=== PATIENT | female | born 1955 | race American Indian/Alaskan Native ===

== ENCOUNTER 2017-03-24 18:24 | Inpatient (IN) | payer OTHER ==
--- NOTE | 2017-03-24 18:35 | Emergency Department Report ---
Chief Complaint: Abdominal Pain Stated Complaint: SEVERE VAG BLEEDING /PREV REVERSAL SURGERY /ABD PX Time Seen by Provider: 03/24/17 18:33 - HPI History of Present Illness: PT c/o R abd pain and vaginal bleeding. pt states she had her colostomy reversed 1 month ago. - ROS Review of Systems: - fevers - chills - Exam Physical Exam: pt looks well, non toxic appears in pain MSE screening note: Focused history and physical exam performed. Due to findings the following was ordered: labs ED Disposition for MSE Condition: Stable
[2017-03-24] MEDS ORDERED: NACL 0.9% 1000 ML 1,000 ML IV ONE (18:55)
[2017-03-24] MEDS ORDERED: DILAUDID IV ONE ×2 (18:55→23:49)
[2017-03-24] MEDS ORDERED: ZOFRAN IV ONE (18:55)
--- NOTE | 2017-03-24 18:55 | Emergency Department Report ---
HPI - General Chief Complaint: Abdominal Pain Time Seen by Provider: 03/24/17 18:33 - HPI HPI: PT c/o R abd pain and vaginal bleeding. pt states she had her colostomy reversed 1 month ago. Patient states she recently saw her surgeon and has somewhat the javon taken out, but for the past 3 days been having diarrhea, nausea, and inability to eat. Patient started having vaginal bleeding today just decided to come to the ED. Patient's denies any fever or chills, night sweats. ED Past Medical Hx - Past Medical History Previous Medical History?: Yes Hx Hypertension: Yes Hx Congestive Heart Failure: No Hx Diabetes: No Hx GERD: Yes Hx Arthritis: Yes Hx Asthma: No Hx COPD: No Hx HIV: No Additional medical history: diverticulitis - Surgical History Past Surgical History?: Yes Additional Surgical History: colon resection with colostomy closure - Social History Smoking Status: Former Smoker Substance Use Type: Alcohol, Prescribed - Medications Home Medications: Home Medications Medication Instructions Recorded Confirmed Last Taken Type Ergocalciferol [Vitamin D2] 1 cap PO QWEEK 02/10/17 03/24/17 02/15/17 History amLODIPine [Norvasc] 5 mg PO DAILY 02/10/17 03/24/17 02/19/17 08:00 History Metoprolol [Lopressor TAB] 50 mg PO BID #60 tablet 02/25/17 03/24/17 Unknown Rx ED Review of Systems ROS: Stated complaint: SEVERE VAG BLEEDING /PREV REVERSAL SURGERY /ABD PX Other details as noted in HPI Comment: All other systems reviewed and negative Endocrine: no symptoms reported Gastrointestinal: abdominal pain, nausea, vomiting, diarrhea Physical Exam - Physical Exam Vital Signs: Vital Signs 03/24/17 18:32 Temperature 98.8 F Pulse Rate 88 Respiratory 20 Rate Blood Pressure 154/100 O2 Sat by Pulse 99 Oximetry Physical Exam: Gen. alert and oriented 3 in no distress Head atraumatic normocephalic Eyes PERR LA EOMI Chest regular rate and rhythm normal S1-S2 lungs clear bilaterally Abdomen soft nondistended, lower area of abdominal wall surgical site with mild dehiscence appears superficial, dehisced region is about 2 cm. Abdominal is diffusely tender. No guarding Back no point tenderness paravertebral tenderness Neuro no focal deficit. Psych normal mood. ED Course Vital Signs 03/24/17 18:32 Temperature 98.8 F Pulse Rate 88 Respiratory 20 Rate Blood Pressure 154/100 O2 Sat by Pulse 99 Oximetry ED Medical Decision Making - Lab Data Result diagrams: 03/24/17 18:59 03/24/17 18:59 Critical care attestation.: If time is entered above; I have spent that time in minutes in the direct care of this critically ill patient, excluding procedure time. ED Disposition Clinical Impression: Intra-abdominal abscess Disposition: OP ADMIT IP TO THIS HOSP Is pt being admited?: Yes Does the pt Need Aspirin: No Condition: Stable Instructions: Abdominal Pain (ED) Referrals: PRIMARY CARE, [Primary Care Provider] - 3-5 Days
--- NOTE | 2017-03-24 19:21 | Admit Criteria Form ---
Admission Criteria Documentation: ABDOMINAL PAIN Clinical Indications for Admission to Inpatient Care (Place 'X' for any and all applicable criteria): Admission is indicated for ANY ONE of the following(1)(2)(3)(4)(5): [ X]I. Inpatient admission required rather than observation care (Also use Abdominal Pain: Observation Care, as appropriate) because of ANY ONE of the following: [ ]a) Severe pain requiring acute inpatient management [ X]b) Identification of etiology/finding that requires inpatient care (eg, aortic dissection, free air) [ ]c) Absent bowel sounds with complete ileus(6) [ ]d) Suspected toxic megacolon [ ]e) Severe electrolyte abnormalities requiring inpatient care [ ]f) High fever or infection requiring inpatient admission as indicated by ANY ONE of following(7)(8): [ ] i) Appropriate outpatient or observational care antimicrobial treatment unavailable, not effective, or not feasible [ ] ii) Documented bacteremia [ ] iii) Temperature > 104.9 degrees F (oral) [ ] iv) T >103.1 F (oral) or < 96.8 F(rectal) that does not respond to all emergency treatment measures [ ]g) Signs of intestinal obstruction [B] [ ]h) Hemodynamic instability [ ]i) IV fluid to replace significant ongoing losses (greater than 3 L/m2 per day) (12)(13) [ ]j) Percutaneous or open drainage (eg, abscess, biliary tract ) procedures [ ]k) Parenteral nutrition regimen that must be implemented on inpatient basis [X ]l) Other condition,treatment or monitoring requiring inpatient admission. [ ]II. Peritoneal signs present [ ]III. Surgery needed that cannot be performed on an ambulatory basis. [ ]IV. Evaluation requires patient to not eat or drink for extended period ( eg, more than 24 hours). [ ]V. Contraindications and/or Inappropriate clinical situations for Observational Care in patients with abdominal pain, when ANY ONE of the following is required: [ ]a) Thorough evaluation is required to prevent catastrophic events due to delays in diagnosing (e.g.Mesenteric ischemia) 1,3 [ ]b) Patient with severe pathology or with chronic symptoms unlikely to improve in the ED stay (3) [ ]. General contraindications and/or Inappropriate clinical situations for Observational Care in patients with abdominal pain, when ANY ONE of the following is required: [ ]a) Prediction of prolongation of LOS based on ANY ONE of the following may be considered as a contraindication for observational care 2, 3, 4, 5, 6, 7, 8, 9, 10, 11 [ ]i) Age > 65 yrs. [ ]ii) Patient arriving by ambulance [ ]iii) Patient with high acuity [ ]iv) Patient requiring vital sign monitoring [ ]v) Patient on IV medication [ ]b) Systolic blood pressures 180mmHg 3,12 [ ]c) Patient with altered mental status including delirium and other alteration of consciousness, (3) [ ]d) Patient whose discharge disposition will be to a usp home or rehabilitation home should not be managed in Emergency Department Observation Unit. CMS rule requires 3 days hospital stay before such placement.3,13 [ ]e) Patient with failure to thrive due to broad array of etiologies 3,16,17 [ ]f) Inability to ambulate 3,14 Extended stay beyond goal length of stay may be needed for(2)(3): [ ]a) Persistent abdominal pain with suspected intra-abdominal process [ ]b) Diagnosed condition requiring continued stay (e.g., pancreatitis, complicated diverticulitis) [ ]c) Surgery (e.g., colectomy) The original [facility] content created by [employer] has been revised. The portions of the content which have been revised are identified through the use of italic text or in bold, and [facility] has neither reviewed nor approved the modified material.All other unmodified content is copyright [facility]. Please see references footnoted in the original [facility] edition 2016 Admission Criteria Met: Yes
[2017-03-24 19:30] LABS: Basophils % (Auto) 0.3 % (0.0-1.8); Eosinophils % (Auto) 1.5 % (0.0-4.3); Hematocrit 31.9 % (30.3-42.9); Hemoglobin 9.8 gm/dl (10.1-14.3); Mean Corpuscular HGB Conc 31 % (30-34); Mean Corpuscular Hemoglobin 24 pg (28-32); Mean Corpuscular Volume 79 fl (79-97); Platelet Count 524 K/mm3 (140-440); Red Blood Count 4.02 M/mm3 (3.65-5.03); Red Cell Distribution Width 15.3 % (13.2-15.2); White Blood Count 10.7 K/mm3 (4.5-11.0)
[2017-03-24 19:32] LABS: INR 1.07 (0.87-1.13)
[2017-03-24 19:33] LABS: Partial Thromboplastin Time 41.7 Sec. (24.2-36.6)
[2017-03-24 19:42] LABS: Albumin 3.8 g/dL (3.9-5); Albumin/Globulin Ratio 0.8 %; Alkaline Phosphatase 85 units/L (35-129); Anion Gap 21 mmol/L; BUN/Creatinine Ratio 11.66; Blood Urea Nitrogen 7 mg/dL (7-17); Calcium 9.6 mg/dL (8.4-10.2); Carbon Dioxide 25 mmol/L (22-30); Chloride 98.9 mmol/L (98-107); Glucose 103 mg/dL (65-100); Lipase 10 units/L (13-60); Potassium 3.5 mmol/L (3.6-5.0); Sodium 141 mmol/L (137-145); Total Protein 8.8 g/dL (6.3-8.2)
[2017-03-24 20:23] LABS: Alanine Aminotransferase < 5 units/L (7-56)
[2017-03-24 21:39] LABS: Bilirubin,Urine NEG (Negative); Blood,Urine MOD (Negative); Ketones,Urine NEG (Negative); Leukocyte Esterase,Urine LG (Negative); Mucus,Urine FEW /HPF; Nitrite,Urine NEG (Negative); Urobilinogen,Urine < 2.0 mg/dL (<2.0); WBC,Urine > 182.0 /HPF (0.0-6.0)
--- NOTE | 2017-03-24 23:25 | Cat Scan Report ---
FINAL REPORT EXAM: CT ABDOMEN PELVIS W CON HISTORY: pain TECHNIQUE: CT of the abdomen and pelvis with intravenous contrast PRIORS: Comparison is dated April 13, 2016 FINDINGS: There is no acute abnormality identified in the lung bases. No focal abnormality identified within the liver spleen or pancreas Kidneys demonstrate symmetric contrast enhancement The adrenal glands are unremarkable pancreas demonstrates no acute change no peripancreatic inflammatory change seen. There is some heterogeneity within lumen of the gallbladder may reflect stones or sludge. The abdominal aorta is normal in caliber Within the lower pelvis there is marked inflammatory appearing change with strandy areas of increased density. Just adjacent to the sigmoid colon there is a collection measuring approximately 3.7 x 2.2 centimeters with a small air collection low-density focus likely reflecting phlegmonous change and abscess. Anterior lower pelvis there are small bowel loops bowel wall thickening. Adjacent to this area there is approximately 2.7 x 2.6 centimeter focus containing some low-density and air also likely reflecting abscess. There is thickened appearance of the dome of the urinary bladder this was present previously. No air collection seen within the urinary bladder there is luminal narrowing of the distal ileum mucosal thickening likely reflecting inflammatory change. There is some evidence for prior bowel resection in this area please correlate with surgical history. Distal descending and proximal to mid sigmoid colon demonstrate wall thickening. IMPRESSION: Inflammatory appearing changes are present within the mid to lower pelvis. Distal descending through mid sigmoid mucosal thickening Mucosal thickening of small-bowel loops in the lower pelvis and at the distal ileum Phlegmonous changes and abscess collection seen adjacent to the mid sigmoid colon Collection seen within the lower pelvis adjacent to small bowel loops and anterior to the urinary bladder consistent with abscess collection and phlegmonous change
[2017-03-24] MEDS ORDERED: ZOSYN/NS 4.5GM/100ML 4.5 GM/100 ML VIAL IV ONE (23:55)
--- NOTE | 2017-03-25 00:18 | History and Physical Report ---
History of Present Illness Date of examination: 03/25/17 Date of admission: 03/25/17 Chief complaint: Abdominal pain History of present illness: Patient is 61-year-old with history of diverticulitis, rectovaginal fistula. She had had sigmoid colon resection in 2016 with colostomy. lasty month on 02/19, she had closure of colostomy by Dr. Marroquin. She she presents with abdominal pain, worse over the past 2 days. Abdominal pain is sharp, generalized pain. She denies nausea, no vomiting, no fever. Also patient complains of diarrhea since colostomy was closed one month ago- multiple episodes of diarrhea daily. In Emergency department, CT abdomen showed intra- abdominal abscesses. She was given Zosyn IV and is being admitted for further management. Past History Past Medical History: hypertension, hyperlipidemia Past Surgical History: bowel surgery, Other (rectovaginal fistula, diverticulitis s/p sigmoid colon resection,colostomy and Yadira's pouch. Closure ofcolostomy on 02/19/2017) Social history: lives with family, full code. denies: smoking, alcohol abuse Family history: hypertension Medications and Allergies Allergies Allergy/AdvReac Type Severity Reaction Status Date / Time naproxen [From Naprosyn] AdvReac Swelling Verified 04/02/16 14:42 naproxen sodium [From Aleve] AdvReac Swelling Verified 04/02/16 14:42 ALEVE AdvReac Severe Swelling Uncoded 04/02/16 14:42 Home Medications Medication Instructions Recorded Confirmed Last Taken Type Ergocalciferol [Vitamin D2] 1 cap PO QWEEK 02/10/17 03/24/17 02/15/17 History amLODIPine [Norvasc] 5 mg PO DAILY 02/10/17 03/24/17 02/19/17 08:00 History Metoprolol [Lopressor TAB] 50 mg PO BID #60 tablet 02/25/17 03/24/17 Unknown Rx Active Meds: Active Medications Piperacillin Sod/Tazobactam Sod (Zosyn/Ns 4.5gm/100ml) 4.5 gm in 100 mls @ 200 mls/hr IV ONCE ONE Stop: 03/25/17 00:24 Exam - Physical Exam Narrative exam: Gen appearance: not in acute distress HEENT: normocephalic atraumatic Neck:supple, no JVD Lungs: clear to auscultation bilaterally, no crackles or wheezes Heart :S1 and S2 regular, no murmurs, rubs or gallop Abdomen: Soft, mild tender, multiple scars, normal bowel sounds Extremities :no edema no clubbing or cyanosis Neuro: Awake alert oriented 3, no focal neurological signs - Constitutional Vitals: Temp Pulse Resp BP Pulse Ox 98.8 F 71 10 L 131/77 95 03/24/17 18:32 03/24/17 20:31 03/24/17 20:31 03/24/17 20:31 03/24/17 20:31 Results - Labs CBC & Chem 7: 03/24/17 18:59 03/24/17 18:59 Labs: Abnormal lab results 03/24/17 03/24/17 03/24/17 Range/Units 18:59 18:59 18:59 Hgb 9.8 L (10.1-14.3) gm/dl MCH 24 L (28-32) pg RDW 15.3 H (13.2-15.2) % Plt Count 524 H (140-440) K/mm3 [place] % (Auto) 9.1 H (0.0-7.3) % [place] # 1.0 H (0.0-0.8) K/mm3 APTT 41.7 H (24.2-36.6) Sec. Potassium 3.5 L (3.6-5.0) mmol/L Creatinine 0.6 L (0.7-1.2) mg/dL Glucose 103 H (65-100) mg/dL ALT < 5 L (7-56) units/L Total Protein 8.8 H (6.3-8.2) g/dL Albumin 3.8 L (3.9-5) g/dL Lipase 10 L (13-60) units/L Urine WBC (Auto) (0.0-6.0) /HPF 03/24/17 Range/Units 21:07 Hgb (10.1-14.3) gm/dl MCH (28-32) pg RDW (13.2-15.2) % Plt Count (140-440) K/mm3 [place] % (Auto) (0.0-7.3) % [place] # (0.0-0.8) K/mm3 APTT (24.2-36.6) Sec. Potassium (3.6-5.0) mmol/L Creatinine (0.7-1.2) mg/dL Glucose (65-100) mg/dL ALT (7-56) units/L Total Protein (6.3-8.2) g/dL Albumin (3.9-5) g/dL Lipase (13-60) units/L Urine WBC (Auto) > 182.0 H (0.0-6.0) /HPF Assessment and Plan Intra-abdominal abscesses. Admit to medical surgical floor. Zosyn IV started. Obtain blood cultures. Keep NPO. Start iv fluids. Morphine iv prn for pain management. Dr. marroquin, surgeon consulted. The ED Physician discussed case with him. History of colovaginal fistula status post sigmoid colon resection and colostomy in 2016 and colostomy closure 02/19/2017 Unit tract infection. Patient started on Zosyn. Urine cultures ordered. Hypertension. BP stable. Hypokalemia. Replace with Potassium containing iv fluid. Hyperlipidemia DVT prophylaxis with SCDs only. No anticoagulation because of possible surgery Full CODE STATUS
[2017-03-25] MEDS ORDERED: TYLENOL PO PRN (01:05)
[2017-03-25] MEDS ORDERED: D5W/0.45% NACL/KCL 10 MEQ 10 MEQ/1,000 ML BAG IV SCH (02:00)
[2017-03-25] MEDS: MORPHINE IV PRN ×3 (05:55→19:31)
[2017-03-25] MEDS: ZOSYN/NS 4.5GM/100ML 4.5 GM/100 ML VIAL IV SCH ×4 (05:56→23:39)
[2017-03-25 06:40] LABS: Hematocrit 29.1 % (30.3-42.9); Hemoglobin 9.1 gm/dl (10.1-14.3); Mean Corpuscular HGB Conc 31 % (30-34); Mean Corpuscular Hemoglobin 25 pg (28-32); Mean Corpuscular Volume 79 fl (79-97); Platelet Count 453 K/mm3 (140-440); Red Blood Count 3.68 M/mm3 (3.65-5.03); Red Cell Distribution Width 15.4 % (13.2-15.2)
[2017-03-25 06:45] LABS: Anion Gap 16 mmol/L; BUN/Creatinine Ratio 8.33; Blood Urea Nitrogen 5 mg/dL (7-17); Calcium 9.2 mg/dL (8.4-10.2); Carbon Dioxide 27 mmol/L (22-30); Chloride 101.7 mmol/L (98-107); Glucose 114 mg/dL (65-100); Potassium 3.1 mmol/L (3.6-5.0); Sodium 142 mmol/L (137-145)
[2017-03-25] MEDS ORDERED: K-DUR PO NR (08:30)
[2017-03-25] MEDS: ZOFRAN IV PRN ×2 (08:55→19:31)
--- NOTE | 2017-03-25 09:58 | Event Note ---
Date: 03/25/17 Patient seen and evaluated medical records reviewed Patient was admitted this morning with intra-abdominal abscess adjacent to the mid sigmoid colon, collection seen within the lower pelvis adjacent to small bowel loops anterior to the urinary bladder consistent with abscess collection and phlegmonous change Being managed with IV antibiotics, surgery has evaluated the patient, planning surgery Advised to consult ID for recommendations. Agree with the current management Plan of care discussed with the patient and the family member at the bedside
[2017-03-25] MEDS ORDERED: FLAGYL 500 MG/100 ML 500 MG/100 ML BAG IV SCH (10:00)
[2017-03-25] MEDS: KCL 10MEQ/100ML 10 MEQ/100 ML BAG IV SCH ×3 (10:19→12:57)
[2017-03-25] MEDS: LOPRESSOR PO SCH ×3 (10:22→21:42)
--- NOTE | 2017-03-25 13:40 | Event Note ---
Date: 03/25/17 ID consult requested. Chart has been reviewed. Full consult note to follow. Patient is a 61-year-old woman with a history of diverticulitis and rectovaginal fistula who underwent a sigmoid colectomy with colostomy in 2016. This was followed by a colostomy take-down last month. She presents now with abdominal pain and is found to have an intra-abdominal abscesses (3.7 X 2.2 cm and 2.7 X 2.6 cm) on CT abdomen/ pelvis. Agree with empiric Zosyn pending definitive surgical plan for drainage/culture and source control. Broaden empirically to Meropenem and Vancomycin if patient becomes clinically unstable.
[2017-03-25] MEDS: D5W/0.45% NACL/KCL 20 MEQ 20 MEQ/1,000 ML BAG IV SCH ×2 (13:53→23:47)
--- NOTE | 2017-03-26 01:41 | Consultation ---
HISTORY OF PRESENT ILLNESS: The patient is a well-known case to me. She is a 61-year-old black female. She is a known case of diverticular disease with abscess formation that required resection and Yadira pouch. This was done about 6 months ago. She came about 4 or 5 weeks ago to close the colostomy. This was performed. Postop she did slowly well and she was discharged home. I saw her in my office in about a week ago and she was doing fine except for some incisional pain. She had retention sutures that I removed almost all of them except for 2. The patient had no nausea and no vomiting. She had no fever. Her white count was 9000. She was evaluated by our ER physician. A CAT scan showed evidence of an area of air fluid level x 3 about 2 cm each. There is no evidence of any free air in the abdominal cavity. She told me that the pain has been really intense in the last 2 days. Her potassium upon admission was on the low side at 3.5 and today is 3.1. White count was 10.7, hematocrit 31.9, platelets were 524. Bilirubin is normal and albumin is 3.8. ALLERGIES: THE PATIENT IS ALLERGIC TO NAPROXEN, ALEVE. PHYSICAL EXAMINATION: GENERAL: At this point showed a well-preserved black female. She looked in moderate pain to the abdomen. HEAD AND NECK: Negative. CHEST: Essentially clear. HEART: Sounds normal to me. BREASTS: Symmetric. ABDOMEN: Showed moderate tenderness in the mid epigastric area. The patient had 2 retention sutures that I need to remove them. We will take them out, maybe tomorrow. EXTREMITIES: Showed no significant edema. IMPRESSION: Three areas of air fluid levels at the level of the abdomen, one superior, one midline and one inferior, status post colon resection with closure of colostomy ____ exogenous obesity. PLAN: I had a lengthy talk with the patient as to the need to keep her n.p.o. with IV fluids and IV antibiotics, hydrate her well and I checked the x-ray with Dr. Copeland who suggested to do a Gastrografin enema on her maybe within the coming 1 or 2 days. We will pursue that further of course and we will go from there. I am going to call Infectious Disease to see her. We are going to hydrate her IV to 100 per hour. Her potassium was low, this would be at least supplemented in the IV. JOB# [id number] CASSANDRA/PRABHAKAR
[2017-03-26] MEDS: ZOFRAN IV PRN (01:43)
[2017-03-26] MEDS: MORPHINE IV PRN ×4 (01:43→20:20)
[2017-03-26 05:39] LABS: Anion Gap 17 mmol/L; Blood Urea Nitrogen 3 mg/dL (7-17); Calcium 8.6 mg/dL (8.4-10.2); Carbon Dioxide 22 mmol/L (22-30); Chloride 102.3 mmol/L (98-107); Glucose 110 mg/dL (65-100); Potassium 3.5 mmol/L (3.6-5.0); Sodium 138 mmol/L (137-145)
[2017-03-26] MEDS: ZOSYN/NS 4.5GM/100ML 4.5 GM/100 ML VIAL IV SCH ×3 (05:53→17:09)
[2017-03-26 06:03] LABS: Hematocrit 28.9 % (30.3-42.9); Hemoglobin 8.9 gm/dl (10.1-14.3); Mean Corpuscular HGB Conc 31 % (30-34); Mean Corpuscular Volume 82 fl (79-97); Platelet Count 425 K/mm3 (140-440); Red Blood Count 3.53 M/mm3 (3.65-5.03); Red Cell Distribution Width 15.3 % (13.2-15.2); White Blood Count 8.3 K/mm3 (4.5-11.0)
[2017-03-26 06:05] LABS: Mean Corpuscular Hemoglobin 25 pg (28-32)
[2017-03-26 06:09] LABS: Basophils % (Auto) 0.5 % (0.0-1.8); Eosinophils % (Auto) 3.4 % (0.0-4.3)
[2017-03-26 06:10] LABS: Diff Status Complete
--- NOTE | 2017-03-26 08:06 | Progress Note ---
Assessment and Plan Assessment and plan: --Hypokalemia; Replenish per protocol by IV KCl, however patient could not tolerate, complaining of burning, and refused Hold IV KCl, closely monitor potassium --Intra-abdominal abscesses: NPO, IV fluids , IV antibiotics , surgery following --History of colovaginal fistula status post sigmoid colon resection and colostomy in 2016 and colostomy closure 02/19/2017 --Urinary tract infection. Continue empiric antibiotics follow cultures --Hypertension; well controlled --DVT prophylaxis with SCDs pharmacologic anticoagulation in view of pending surgical procedure --Full CODE STATUS Consults noted in the appreciated Assessment and plan reviewed with the patient and family member and also her nurse History Interval history: Patient seen and evaluated medical records reviewed No new events reported by the nursing staff Patient has severe diarrhea, no melena or rectal bleeding Hospitalist Physical - Constitutional Vitals: Temp Pulse Resp BP Pulse Ox 98.9 F 73 18 135/78 99 03/25/17 22:25 03/25/17 22:25 03/26/17 06:23 03/25/17 22:25 03/25/17 22:25 General appearance: Present: no acute distress, well-nourished - EENT Eyes: Present: PERRL, EOM intact - Neck Neck: Present: supple, normal ROM - Respiratory Respiratory effort: normal Respiratory: bilateral: diminished, rhonchi, negative: rales, wheezing - Cardiovascular Rhythm: regular Heart Sounds: Present: S1 & S2 - Extremities Extremities: no ischemia, No edema - Abdominal General gastrointestinal: soft, tender, absent bowel sounds, other (surgical scar intact) - Integumentary Integumentary: Present: clear, warm - Psychiatric Psychiatric: appropriate mood/affect, cooperative - Neurologic Neurologic: CNII-XII intact, moves all extremities Results - Labs CBC & Chem 7: 03/26/17 04:27 03/26/17 04:27 Labs: Laboratory Last Values WBC 8.3 K/mm3 (4.5-11.0) 03/26/17 04:27 RBC 3.53 M/mm3 (3.65-5.03) L 03/26/17 04:27 Hgb 8.9 gm/dl (10.1-14.3) L 03/26/17 04:27 Hct 28.9 % (30.3-42.9) L 03/26/17 04:27 MCV 82 fl (79-97) 03/26/17 04:27 MCH 25 pg (28-32) L 03/26/17 04:27 MCHC 31 % (30-34) 03/26/17 04:27 RDW 15.3 % (13.2-15.2) H 03/26/17 04:27 Plt Count 425 K/mm3 (140-440) 03/26/17 04:27 Lymph % (Auto) 20.1 % (13.4-35.0) 03/26/17 04:27 [place] % (Auto) 8.8 % (0.0-7.3) H 03/26/17 04:27 Eos % (Auto) 3.4 % (0.0-4.3) 03/26/17 04:27 Baso % (Auto) 0.5 % (0.0-1.8) 03/26/17 04:27 Lymph # 1.7 K/mm3 (1.2-5.4) 03/26/17 04:27 [place] # 0.7 K/mm3 (0.0-0.8) 03/26/17 04:27 Eos # 0.3 K/mm3 (0.0-0.4) 03/26/17 04:27 Baso # 0.0 K/mm3 (0.0-0.1) 03/26/17 04:27 Add Manual Diff Complete 03/26/17 04:27 Seg Neutrophils % 67.2 % (40.0-70.0) 03/26/17 04:27 Seg Neutrophils # 5.9 K/mm3 (1.8-7.7) 03/26/17 04:27 PT 14.5 Sec. (12.2-14.9) 03/24/17 18:59 INR 1.07 (0.87-1.13) 03/24/17 18:59 APTT 41.7 Sec. (24.2-36.6) H 03/24/17 18:59 Sodium 138 mmol/L (137-145) 03/26/17 04:27 Potassium 3.5 mmol/L (3.6-5.0) L 03/26/17 04:27 Chloride 102.3 mmol/L (98-107) 03/26/17 04:27 Carbon Dioxide 22 mmol/L (22-30) 03/26/17 04:27 Anion Gap 17 mmol/L 03/26/17 04:27 BUN 3 mg/dL (7-17) L 03/26/17 04:27 Creatinine 0.6 mg/dL (0.7-1.2) L 03/26/17 04:27 Estimated GFR > 60 ml/min 03/26/17 04:27 BUN/Creatinine Ratio 5.00 % 03/26/17 04:27 Glucose 110 mg/dL (65-100) H 03/26/17 04:27 Calcium 8.6 mg/dL (8.4-10.2) 03/26/17 04:27 Total Bilirubin 0.20 mg/dL (0.1-1.2) 03/24/17 18:59 AST 9 units/L (5-40) 03/24/17 18:59 ALT < 5 units/L (7-56) L 03/24/17 18:59 Alkaline Phosphatase 85 units/L (35-129) 03/24/17 18:59 Total Protein 8.8 g/dL (6.3-8.2) H 03/24/17 18:59 Albumin 3.8 g/dL (3.9-5) L 03/24/17 18:59 Albumin/Globulin Ratio 0.8 % 03/24/17 18:59 Lipase 10 units/L (13-60) L 03/24/17 18:59 Urine Color Yellow (Yellow) 03/24/17 21:07 Urine Turbidity Cloudy (Clear) 03/24/17 21:07 Urine pH 7.0 (5.0-7.0) 03/24/17 21:07 Ur Specific [place] 1.010 (1.003-1.030) 03/24/17 21:07 Urine Protein 30 mg/dl mg/dL (Negative) 03/24/17 21:07 Urine Glucose (UA) Neg mg/dL (Negative) 03/24/17 21:07 Urine Ketones Neg mg/dL (Negative) 03/24/17 21:07 Urine Blood Mod (Negative) 03/24/17 21:07 Urine Nitrite Neg (Negative) 03/24/17 21:07 Urine Bilirubin Neg (Negative) 03/24/17 21:07 Urine Urobilinogen < 2.0 mg/dL (<2.0) 03/24/17 21:07 Ur Leukocyte Esterase Lg (Negative) 03/24/17 21:07 Urine WBC (Auto) > 182.0 /HPF (0.0-6.0) H 03/24/17 21:07 Urine RBC (Auto) 19.0 /HPF (0.0-6.0) 03/24/17 21:07 U Epithel Cells (Auto) 1.0 /HPF (0-13.0) 03/24/17 21:07 Urine WBC Clumps 3+ /HPF 03/24/17 21:07 Urine Mucus Few /HPF 03/24/17 21:07 Blood Type O POSITIVE 03/24/17 19:00 Antibody Screen TNR 03/24/17 19:00 QUEENIE Antibody Screen Negative 03/24/17 19:00
--- NOTE | 2017-03-26 08:50 | Consultation ---
History of Present Illness - Reason for Consult Consult date: 03/26/17 Intra-Abdominal Abscesses Requesting physician: DINORAH SERNA - History of Present Illness Ms. Winslow is a 61-year-old woman with a history of diverticulitis complicated by the development of a rectovaginal fistula. She underwent a sigmoid colectomy with colostomy in 2015. She completed a colostomy take-down in February 2017 and now returns with severe abdominal pain. CT imaging of the abdomen revealed two discrete collections measuring 2.6 X 2.7 cm and 2.2 X 3.7 cm. She is started on empiric Zosyn pending further surgical intervention. She also complains of diarrhea since the colostomy take-down. ID consultation is requested for further treatment recommendations. Past History Past Medical History: hypertension, hyperlipidemia, other (diverticulitis s/p sigmoid colectomy; hx rectovaginal fistula) Past Surgical History: bowel surgery, Other (rectovaginal fistula, diverticulitis s/p sigmoid colon resection,colostomy and Yadira's pouch. Closure ofcolostomy on 02/19/2017) Social history: lives with family, full code. denies: smoking, alcohol abuse Family history: hypertension Medications and Allergies Allergies Allergy/AdvReac Type Severity Reaction Status Date / Time naproxen [From Naprosyn] AdvReac Swelling Verified 04/02/16 14:42 naproxen sodium [From Aleve] AdvReac Swelling Verified 04/02/16 14:42 ALEVE AdvReac Severe Swelling Uncoded 04/02/16 14:42 Home Medications Medication Instructions Recorded Confirmed Last Taken Type Ergocalciferol [Vitamin D2] 1 cap PO QWEEK 02/10/17 03/24/17 02/15/17 History amLODIPine [Norvasc] 5 mg PO DAILY 02/10/17 03/24/17 02/19/17 08:00 History Metoprolol [Lopressor TAB] 50 mg PO BID #60 tablet 02/25/17 03/24/17 Unknown Rx Active Meds: Active Medications Acetaminophen (Tylenol) 650 mg PO Q4H PRN PRN Reason: Pain MILD(1-3)/Fever >100.5/HINDS Piperacillin Sod/Tazobactam Sod (Zosyn/Ns 4.5gm/100ml) 4.5 gm in 100 mls @ 200 mls/hr IV Q6HR MURTAZA PRN Reason: Protocol Last Admin: 03/26/17 05:53 Dose: 200 mls/hr Potassium Chloride/Dextrose/Sod Cl (D5w/0.45% Nacl/Kcl 20 Meq) 20 meq in 1,000 mls @ 100 mls/hr IV DIRECT MURTAZA Last Admin: 03/25/17 23:47 Dose: 100 mls/hr Potassium Chloride (Kcl 10meq/100ml) 10 meq in 100 mls @ 100 mls/hr IV Q1H [facility] Stop: 03/26/17 11:59 Metoprolol Tartrate (Lopressor) 50 mg PO BID [facility] Last Admin: 03/25/17 21:42 Dose: Not Given Morphine Sulfate (Morphine) 2 mg IV Q4H PRN PRN Reason: Pain, Moderate (4-6) Last Admin: 03/26/17 05:53 Dose: 2 mg Ondansetron HCl (Zofran) 4 mg IV Q6H PRN PRN Reason: nausea or vomiting Last Admin: 03/26/17 01:43 Dose: 4 mg Review of Systems All systems: negative Constitutional: no fever, no chills Cardiovascular: no chest pain Respiratory: no cough, no shortness of breath Gastrointestinal: abdominal pain, nausea, diarrhea, no jaundice Genitourinary Female: no dysuria Integumentary: no rash, no pruritis Physical Examination - Constitutional Vitals: Vital Signs Temp Pulse Resp BP Pulse Ox 98.9 F 73 18 135/78 99 03/25/17 22:25 03/25/17 22:25 03/26/17 06:23 03/25/17 22:25 03/25/17 22:25 Temperature -Last 24 Hours Temperature 98.9 F Temperature 100.1 F General appearance: Present: no acute distress, well-nourished, other (non- toxic appearance) - EENT Eyes: Absent: scleral icterus - Respiratory Respiratory effort: normal Respiratory: bilateral: CTA, negative: rhonchi - Cardiovascular Rhythm: regular Heart Sounds: Present: S1 & S2 - Extremities Extremities: No edema - Abdominal General gastrointestinal: Present: soft, tender, distended (mildly), hypoactive bowel sounds, other (reinforced horizontal sutures on abdomen with small open area at suprapubic midline, serous output) - Integumentary Integumentary: Present: clear. Absent: jaundice - Psychiatric Psychiatric: appropriate mood/affect - Neurologic Neurologic: no focal deficits Results - Labs CBC & Chem 7: 03/26/17 04:27 03/26/17 04:27 Labs: Abnormal lab results 03/26/17 03/26/17 Range/Units 04:27 04:27 RBC 3.53 L (3.65-5.03) M/mm3 Hgb 8.9 L (10.1-14.3) gm/dl Hct 28.9 L (30.3-42.9) % MCH 25 L (28-32) pg RDW 15.3 H (13.2-15.2) % [place] % (Auto) 8.8 H (0.0-7.3) % Potassium 3.5 L (3.6-5.0) mmol/L BUN 3 L (7-17) mg/dL Creatinine 0.6 L (0.7-1.2) mg/dL Glucose 110 H (65-100) mg/dL Microbiology 03/25/17 Unknown Urine,Clean Catch Urine Culture - Preliminary Gram Negative David 03/25/17 01:16 Peripheral/Venous Blood Culture - Preliminary NO GROWTH AFTER 24 HOURS 03/25/17 01:16 Peripheral/Venous Blood Culture - Preliminary NO GROWTH AFTER 24 HOURS - Imaging and Cardiology CT scan - abdomen: report reviewed Assessment and Plan - Patient Problems (1) Intra-abdominal abscess Current Visit: Yes Status: Acute Plan to address problem: 1. Zosyn and Fluconazole empirically. 2. Await surgical plans for abscess drainage as these collections are too large to confidently manage medically. Also, culture data would benefit treatment choice. (2) Diarrhea Current Visit: Yes Status: Acute Qualifiers: Diarrhea type: D Plan to address problem: 1. Will send stool for culture and Cdiff testing. 2. Empiric Flagyl for now.
[2017-03-26] MEDS: KCL 10MEQ/100ML 10 MEQ/100 ML BAG IV SCH ×2 (09:33→12:10)
[2017-03-26] MEDS: LOPRESSOR PO SCH ×3 (10:23→22:28)
[2017-03-26] MEDS: FLAGYL PO SCH ×5 (10:23→22:28)
[2017-03-26] MEDS: DIFLUCAN 200 ML IV SCH (12:00)
[2017-03-26] MEDS: D5W/0.45% NACL/KCL 20 MEQ 20 MEQ/1,000 ML BAG IV SCH (12:24)
--- NOTE | 2017-03-26 15:21 | Progress Note ---
Subjective Patient Reports: Positive: feels better, still having pain, pain is less, bowel movement, diarrhea Narrative: feels OK still some abd pain ,loose stool abd OK will obtain KUB needs more K. Objective Vital Signs - 12hr 03/26/17 03/26/17 03/26/17 05:53 06:23 08:00 Temperature 98.1 F Pulse Rate 69 Respiratory 18 18 20 Rate Blood Pressure 137/72 O2 Sat by Pulse 97 Oximetry 03/26/17 15:14 Temperature 99.8 F H Pulse Rate 73 Respiratory 20 Rate Blood Pressure 134/77 O2 Sat by Pulse 97 Oximetry - Labs 03/26/17 04:27 03/26/17 04:27 Diabetes panel 03/26/17 Range/Units 04:27 Sodium 138 (137-145) mmol/L Potassium 3.5 L (3.6-5.0) mmol/L Chloride 102.3 (98-107) mmol/L Carbon Dioxide 22 (22-30) mmol/L BUN 3 L (7-17) mg/dL Creatinine 0.6 L (0.7-1.2) mg/dL Glucose 110 H (65-100) mg/dL Calcium 8.6 (8.4-10.2) mg/dL Calcium panel 03/26/17 Range/Units 04:27 Calcium 8.6 (8.4-10.2) mg/dL Pituitary panel 03/26/17 Range/Units 04:27 Sodium 138 (137-145) mmol/L Potassium 3.5 L (3.6-5.0) mmol/L Chloride 102.3 (98-107) mmol/L Carbon Dioxide 22 (22-30) mmol/L BUN 3 L (7-17) mg/dL Creatinine 0.6 L (0.7-1.2) mg/dL Glucose 110 H (65-100) mg/dL Calcium 8.6 (8.4-10.2) mg/dL Adrenal panel 03/26/17 Range/Units 04:27 Sodium 138 (137-145) mmol/L Potassium 3.5 L (3.6-5.0) mmol/L Chloride 102.3 (98-107) mmol/L Carbon Dioxide 22 (22-30) mmol/L BUN 3 L (7-17) mg/dL Creatinine 0.6 L (0.7-1.2) mg/dL Glucose 110 H (65-100) mg/dL Calcium 8.6 (8.4-10.2) mg/dL
[2017-03-27] MEDS: ZOSYN/NS 4.5GM/100ML 4.5 GM/100 ML VIAL IV SCH ×4 (00:51→18:32)
[2017-03-27] MEDS: MORPHINE IV PRN ×4 (00:56→20:21)
[2017-03-27] MEDS: FLAGYL PO SCH (05:52)
[2017-03-27 06:45] LABS: Basophils % (Auto) 0.3 % (0.0-1.8); Eosinophils % (Auto) 3.4 % (0.0-4.3); Hematocrit 28.6 % (30.3-42.9); Hemoglobin 9.1 gm/dl (10.1-14.3); Mean Corpuscular HGB Conc 32 % (30-34); Mean Corpuscular Volume 79 fl (79-97); Platelet Count 431 K/mm3 (140-440); Red Blood Count 3.63 M/mm3 (3.65-5.03); Red Cell Distribution Width 15.4 % (13.2-15.2); White Blood Count 9.3 K/mm3 (4.5-11.0)
[2017-03-27 06:48] LABS: Anion Gap 18 mmol/L; BUN/Creatinine Ratio 1.66; Blood Urea Nitrogen 1 mg/dL (7-17); Calcium 8.7 mg/dL (8.4-10.2); Carbon Dioxide 24 mmol/L (22-30); Chloride 105.6 mmol/L (98-107); Glucose 88 mg/dL (65-100); Potassium 3.1 mmol/L (3.6-5.0); Sodium 144 mmol/L (137-145)
[2017-03-27 07:19] LABS: Mean Corpuscular Hemoglobin 25 pg (28-32)
--- NOTE | 2017-03-27 07:52 | XRay Report ---
Single view abdomen: Findings: No bowel distention. No wall thickening. No radiopaque calculus or abnormal calcification. Impression: Essentially negative abdomen.
[2017-03-27] MEDS: K-DUR PO SCH (10:27)
[2017-03-27] MEDS: DIFLUCAN 200 ML IV SCH (10:27)
[2017-03-27] MEDS: LOPRESSOR PO SCH ×2 (10:27→22:12)
[2017-03-27] MEDS: D5W/0.45% NACL/KCL 20 MEQ 20 MEQ/1,000 ML BAG IV SCH ×2 (10:52→20:30)
--- NOTE | 2017-03-27 11:28 | Progress Note ---
Assessment and Plan - Patient Problems (1) Intra-abdominal abscess Current Visit: Yes Status: Acute Plan to address problem: 1. Continue current antibiotics pending definitive plan for percutaneous vs. surgical drainage. 2. Awaiting findings of repeat CT scan. 3. Size of collections makes medical management alone less reliable. (2) Clostridium difficile diarrhea Current Visit: Yes Status: Acute Plan to address problem: 1. Will change Flagyl to enteral Vancomycin. 2. Duration should be extended to include duration that patient remains on antibiotics for abscesses. 3. Contact isolation. Subjective Date of service: 03/27/17 Principal diagnosis: Intra-Abdominal Abscesses Interval history: Patient remains afebrile, stable. Continued diarrhea though improved since admission. Objective - Constitutional Vitals: Vital Signs Temp Pulse Resp BP Pulse Ox 98.3 F 68 20 142/80 97 03/27/17 07:00 03/27/17 07:00 03/27/17 07:00 03/27/17 07:00 03/27/17 07:00 Temperature -Last 24 Hours Temperature 98.3 F Temperature 99.7 F Temperature 98.5 F Temperature 99.8 F General appearance: Present: no acute distress, other (non-toxic appearance) - EENT ENT: poor dentition - Neck Neck: supple - Respiratory Respiratory effort: normal Respiratory: bilateral: CTA - Cardiovascular Rhythm: regular Heart Sounds: Present: S1 & S2 Extremities: No edema - Gastrointestinal General gastrointestinal: Present: soft, tender, distended (mildly distended), hypoactive bowel sounds, other (some remaining sutures, no drainage seen) Localized gastrointestinal: tender: RLQ (near area of sutures) - Integumentary Integumentary: clear, no jaundice - Psychiatric Psychiatric: appropriate mood/affect - Labs CBC & Chem 7: 03/27/17 05:49 03/27/17 05:49 Labs: Abnormal lab results 03/27/17 03/27/17 Range/Units 05:49 05:49 RBC 3.63 L (3.65-5.03) M/mm3 Hgb 9.1 L (10.1-14.3) gm/dl Hct 28.6 L (30.3-42.9) % MCH 25 L (28-32) pg RDW 15.4 H (13.2-15.2) % [place] % (Auto) 9.6 H (0.0-7.3) % [place] # 0.9 H (0.0-0.8) K/mm3 Potassium 3.1 L (3.6-5.0) mmol/L BUN 1 L (7-17) mg/dL Creatinine 0.6 L (0.7-1.2) mg/dL Magnesium 1.60 L (1.7-2.3) mg/dL Microbiology 03/25/17 Unknown Urine,Clean Catch Urine Culture - Final Escherichia Coli 03/26/17 20:39 Stool Stool Culture - Preliminary 03/26/17 20:39 Stool Stool for WBCs - Final 03/25/17 01:16 Peripheral/Venous Blood Culture - Preliminary NO GROWTH AFTER 48 HOURS 03/25/17 01:16 Peripheral/Venous Blood Culture - Preliminary NO GROWTH AFTER 48 HOURS 03/26/17 20:39 Stool C. difficile DNA Amplification - Final (Positive) - Imaging and cardiology Abdominal x-ray: report reviewed (no bowel distention, negative study)
--- NOTE | 2017-03-27 12:54 | Progress Note ---
Assessment and Plan Assessment and plan: --Hypokalemia; Replenish per protocol by IV KCl, however patient could not tolerate, complaining of burning, and refused Hold IV KCl, closely monitor potassium --Intra-abdominal abscesses: NPO, IV fluids , IV antibiotics , surgery following --History of colovaginal fistula status post sigmoid colon resection and colostomy in 2016 and colostomy closure 02/19/2017 --Urinary tract infection. Continue empiric antibiotics follow cultures --Hypertension; well controlled --DVT prophylaxis with SCDs pharmacologic anticoagulation in view of pending surgical procedure --Full CODE STATUS Consults noted in the appreciated Assessment and plan reviewed with the patient and family member and also her nurse History Interval history: Patient seen and evaluated medical records reviewed She feels slightly better, C. difficile positive, and contact isolation Hospitalist Physical - Constitutional Vitals: Temp Pulse Resp BP Pulse Ox 98.3 F 68 20 142/80 97 03/27/17 07:00 03/27/17 07:00 03/27/17 07:00 03/27/17 07:00 03/27/17 07:00 General appearance: Present: no acute distress, well-nourished - EENT Eyes: Present: PERRL, EOM intact - Neck Neck: Present: supple, normal ROM - Respiratory Respiratory effort: normal Respiratory: bilateral: diminished, negative: rales, rhonchi, wheezing - Cardiovascular Rhythm: regular Heart Sounds: Present: S1 & S2 - Extremities Extremities: no ischemia, pulses intact - Abdominal General gastrointestinal: soft, non-tender, hypoactive bowel sounds - Integumentary Integumentary: Present: clear, warm - Psychiatric Psychiatric: appropriate mood/affect, cooperative - Neurologic Neurologic: CNII-XII intact, moves all extremities Results - Labs CBC & Chem 7: 03/27/17 05:49 03/27/17 05:49 Labs: Laboratory Last Values WBC 9.3 K/mm3 (4.5-11.0) 03/27/17 05:49 RBC 3.63 M/mm3 (3.65-5.03) L 03/27/17 05:49 Hgb 9.1 gm/dl (10.1-14.3) L 03/27/17 05:49 Hct 28.6 % (30.3-42.9) L 03/27/17 05:49 MCV 79 fl (79-97) 03/27/17 05:49 MCH 25 pg (28-32) L 03/27/17 05:49 MCHC 32 % (30-34) 03/27/17 05:49 RDW 15.4 % (13.2-15.2) H 03/27/17 05:49 Plt Count 431 K/mm3 (140-440) 03/27/17 05:49 Lymph % (Auto) 21.6 % (13.4-35.0) 03/27/17 05:49 [place] % (Auto) 9.6 % (0.0-7.3) H 03/27/17 05:49 Eos % (Auto) 3.4 % (0.0-4.3) 03/27/17 05:49 Baso % (Auto) 0.3 % (0.0-1.8) 03/27/17 05:49 Lymph # 2.0 K/mm3 (1.2-5.4) 03/27/17 05:49 [place] # 0.9 K/mm3 (0.0-0.8) H 03/27/17 05:49 Eos # 0.3 K/mm3 (0.0-0.4) 03/27/17 05:49 Baso # 0.0 K/mm3 (0.0-0.1) 03/27/17 05:49 Add Manual Diff Complete 03/26/17 04:27 Seg Neutrophils % 65.1 % (40.0-70.0) 03/27/17 05:49 Seg Neutrophils # 6.0 K/mm3 (1.8-7.7) 03/27/17 05:49 PT 14.5 Sec. (12.2-14.9) 03/24/17 18:59 INR 1.07 (0.87-1.13) 03/24/17 18:59 APTT 41.7 Sec. (24.2-36.6) H 03/24/17 18:59 Sodium 144 mmol/L (137-145) 03/27/17 05:49 Potassium 3.1 mmol/L (3.6-5.0) L 03/27/17 05:49 Chloride 105.6 mmol/L (98-107) 03/27/17 05:49 Carbon Dioxide 24 mmol/L (22-30) 03/27/17 05:49 Anion Gap 18 mmol/L 03/27/17 05:49 BUN 1 mg/dL (7-17) L 03/27/17 05:49 Creatinine 0.6 mg/dL (0.7-1.2) L 03/27/17 05:49 Estimated GFR > 60 ml/min 03/27/17 05:49 BUN/Creatinine Ratio 1.66 % 03/27/17 05:49 Glucose 88 mg/dL (65-100) 03/27/17 05:49 Calcium 8.7 mg/dL (8.4-10.2) 03/27/17 05:49 Phosphorus 3.10 mg/dL (2.5-4.5) 03/27/17 05:49 Magnesium 1.60 mg/dL (1.7-2.3) L 03/27/17 05:49 Total Bilirubin 0.20 mg/dL (0.1-1.2) 03/24/17 18:59 AST 9 units/L (5-40) 03/24/17 18:59 ALT < 5 units/L (7-56) L 03/24/17 18:59 Alkaline Phosphatase 85 units/L (35-129) 03/24/17 18:59 Total Protein 8.8 g/dL (6.3-8.2) H 03/24/17 18:59 Albumin 3.8 g/dL (3.9-5) L 03/24/17 18:59 Albumin/Globulin Ratio 0.8 % 03/24/17 18:59 Lipase 10 units/L (13-60) L 03/24/17 18:59 Urine Color Yellow (Yellow) 03/24/17 21:07 Urine Turbidity Cloudy (Clear) 03/24/17 21:07 Urine pH 7.0 (5.0-7.0) 03/24/17 21:07 Ur Specific [place] 1.010 (1.003-1.030) 03/24/17 21:07 Urine Protein 30 mg/dl mg/dL (Negative) 03/24/17 21:07 Urine Glucose (UA) Neg mg/dL (Negative) 03/24/17 21:07 Urine Ketones Neg mg/dL (Negative) 03/24/17 21:07 Urine Blood Mod (Negative) 03/24/17 21:07 Urine Nitrite Neg (Negative) 03/24/17 21:07 Urine Bilirubin Neg (Negative) 03/24/17 21:07 Urine Urobilinogen < 2.0 mg/dL (<2.0) 03/24/17 21:07 Ur Leukocyte Esterase Lg (Negative) 03/24/17 21:07 Urine WBC (Auto) > 182.0 /HPF (0.0-6.0) H 03/24/17 21:07 Urine RBC (Auto) 19.0 /HPF (0.0-6.0) 03/24/17 21:07 U Epithel Cells (Auto) 1.0 /HPF (0-13.0) 03/24/17 21:07 Urine WBC Clumps 3+ /HPF 03/24/17 21:07 Urine Mucus Few /HPF 03/24/17 21:07 Blood Type O POSITIVE 03/24/17 19:00 Antibody Screen TNR 03/24/17 19:00 QUEENIE Antibody Screen Negative 03/24/17 19:00
[2017-03-27] MEDS: VANCOMYCIN PO PO SCH ×2 (14:03→18:32)
[2017-03-27] MEDS: ZOFRAN IV PRN (20:29)
[2017-03-27] MEDS ORDERED: D5W/0.45% NACL/KCL 30 MEQ 30 MEQ/1,000 ML BAG IV SCH (23:00)
--- NOTE | 2017-03-27 23:24 | Progress Note ---
Subjective Patient Reports: Positive: feels better, still having pain, pain is less, flatus , bowel movement Narrative: feels a little better toda , will cont with antibiotics , will need F/U CT , Objective Vital Signs - 12hr 03/27/17 03/27/17 03/27/17 16:00 20:45 22:12 Temperature 100.2 F H 97.9 F Pulse Rate 61 64 99 H Respiratory 19 19 Rate Blood Pressure 158/85 146/76 146/76 - Labs 03/27/17 05:49 03/27/17 05:49 Diabetes panel 03/27/17 Range/Units 05:49 Sodium 144 (137-145) mmol/L Potassium 3.1 L (3.6-5.0) mmol/L Chloride 105.6 (98-107) mmol/L Carbon Dioxide 24 (22-30) mmol/L BUN 1 L (7-17) mg/dL Creatinine 0.6 L (0.7-1.2) mg/dL Glucose 88 (65-100) mg/dL Calcium 8.7 (8.4-10.2) mg/dL Calcium panel 03/27/17 Range/Units 05:49 Calcium 8.7 (8.4-10.2) mg/dL Phosphorus 3.10 (2.5-4.5) mg/dL Pituitary panel 03/27/17 Range/Units 05:49 Sodium 144 (137-145) mmol/L Potassium 3.1 L (3.6-5.0) mmol/L Chloride 105.6 (98-107) mmol/L Carbon Dioxide 24 (22-30) mmol/L BUN 1 L (7-17) mg/dL Creatinine 0.6 L (0.7-1.2) mg/dL Glucose 88 (65-100) mg/dL Calcium 8.7 (8.4-10.2) mg/dL Adrenal panel 03/27/17 Range/Units 05:49 Sodium 144 (137-145) mmol/L Potassium 3.1 L (3.6-5.0) mmol/L Chloride 105.6 (98-107) mmol/L Carbon Dioxide 24 (22-30) mmol/L BUN 1 L (7-17) mg/dL Creatinine 0.6 L (0.7-1.2) mg/dL Glucose 88 (65-100) mg/dL Calcium 8.7 (8.4-10.2) mg/dL
[2017-03-28] MEDS: ZOSYN/NS 4.5GM/100ML 4.5 GM/100 ML VIAL IV SCH ×3 (00:15→15:02)
[2017-03-28] MEDS: VANCOMYCIN PO PO SCH ×2 (00:16→05:45)
[2017-03-28] MEDS: ZOFRAN IV PRN (09:57)
[2017-03-28] MEDS: MORPHINE IV PRN (09:57)
[2017-03-28] MEDS: K-DUR PO SCH (09:59)
[2017-03-28] MEDS: LOPRESSOR PO SCH ×2 (09:59→22:28)
[2017-03-28 11:42] LABS: Anion Gap 19 mmol/L; Calcium 8.9 mg/dL (8.4-10.2); Carbon Dioxide 22 mmol/L (22-30); Chloride 105.4 mmol/L (98-107); Glucose 115 mg/dL (65-100); Potassium 3.3 mmol/L (3.6-5.0); Sodium 143 mmol/L (137-145)
[2017-03-28] MEDS ORDERED: K-DUR PO NR (11:45)
[2017-03-28 11:54] LABS: BUN/Creatinine Ratio 1.66; Blood Urea Nitrogen < 1 mg/dL (7-17)
--- NOTE | 2017-03-28 11:54 | Progress Note ---
Assessment and Plan Assessment and plan: --C. difficile colitis; diarrhea, IV fluids and contact isolation, oral vancomycin ID following --Hypokalemia; Replenish per protocol by IV KCl, however patient could not tolerate, complaining of burning, and refused Hold IV KCl, closely monitor potassium --Intra-abdominal abscesses: NPO, IV fluids , IV antibiotics , surgery following --History of colovaginal fistula status post sigmoid colon resection and colostomy in 2016 and colostomy closure 02/19/2017 --Urinary tract infection. Continue empiric antibiotics follow cultures --Hypertension; well controlled --DVT prophylaxis with SCDs pharmacologic anticoagulation in view of pending surgical procedure --Full CODE STATUS Repeat CT scan on Thursday Advance diet as tolerated Surgical evaluation and recommendations noted History Interval history: Patient seen and evaluated medical records reviewed Patient feels better, tolerating clear liquids, no new complaints Hospitalist Physical - Constitutional Vitals: Temp Pulse Resp BP Pulse Ox 98.0 F 64 20 134/80 97 03/28/17 08:00 03/28/17 08:00 03/28/17 08:00 03/28/17 09:59 03/27/17 07:00 General appearance: Present: no acute distress, well-nourished - EENT Eyes: Present: PERRL, EOM intact - Neck Neck: Present: supple, normal ROM - Respiratory Respiratory effort: normal Respiratory: bilateral: diminished, negative: rales, rhonchi - Cardiovascular Rhythm: regular Heart Sounds: Present: S1 & S2 - Extremities Extremities: no ischemia, No edema - Abdominal General gastrointestinal: soft, non-tender, normal bowel sounds, other ( surgical scars healing) - Integumentary Integumentary: Present: clear, warm - Psychiatric Psychiatric: appropriate mood/affect, cooperative - Neurologic Neurologic: CNII-XII intact, moves all extremities Results - Labs CBC & Chem 7: 03/27/17 05:49 03/28/17 10:43 Labs: Laboratory Last Values WBC 9.3 K/mm3 (4.5-11.0) 03/27/17 05:49 RBC 3.63 M/mm3 (3.65-5.03) L 03/27/17 05:49 Hgb 9.1 gm/dl (10.1-14.3) L 03/27/17 05:49 Hct 28.6 % (30.3-42.9) L 03/27/17 05:49 MCV 79 fl (79-97) 03/27/17 05:49 MCH 25 pg (28-32) L 03/27/17 05:49 MCHC 32 % (30-34) 03/27/17 05:49 RDW 15.4 % (13.2-15.2) H 03/27/17 05:49 Plt Count 431 K/mm3 (140-440) 03/27/17 05:49 Lymph % (Auto) 21.6 % (13.4-35.0) 03/27/17 05:49 [place] % (Auto) 9.6 % (0.0-7.3) H 03/27/17 05:49 Eos % (Auto) 3.4 % (0.0-4.3) 03/27/17 05:49 Baso % (Auto) 0.3 % (0.0-1.8) 03/27/17 05:49 Lymph # 2.0 K/mm3 (1.2-5.4) 03/27/17 05:49 [place] # 0.9 K/mm3 (0.0-0.8) H 03/27/17 05:49 Eos # 0.3 K/mm3 (0.0-0.4) 03/27/17 05:49 Baso # 0.0 K/mm3 (0.0-0.1) 03/27/17 05:49 Add Manual Diff Complete 03/26/17 04:27 Seg Neutrophils % 65.1 % (40.0-70.0) 03/27/17 05:49 Seg Neutrophils # 6.0 K/mm3 (1.8-7.7) 03/27/17 05:49 PT 14.5 Sec. (12.2-14.9) 03/24/17 18:59 INR 1.07 (0.87-1.13) 03/24/17 18:59 APTT 41.7 Sec. (24.2-36.6) H 03/24/17 18:59 Sodium 143 mmol/L (137-145) 03/28/17 10:43 Potassium 3.3 mmol/L (3.6-5.0) L 03/28/17 10:43 Chloride 105.4 mmol/L (98-107) 03/28/17 10:43 Carbon Dioxide 22 mmol/L (22-30) 03/28/17 10:43 Anion Gap 19 mmol/L 03/28/17 10:43 BUN 1 mg/dL (7-17) L 03/27/17 05:49 Creatinine 0.6 mg/dL (0.7-1.2) L 03/28/17 10:43 Estimated GFR > 60 ml/min 03/28/17 10:43 BUN/Creatinine Ratio 1.66 % 03/27/17 05:49 Glucose 115 mg/dL (65-100) H 03/28/17 10:43 Calcium 8.9 mg/dL (8.4-10.2) 03/28/17 10:43 Phosphorus 3.10 mg/dL (2.5-4.5) 03/27/17 05:49 Magnesium 1.60 mg/dL (1.7-2.3) L 03/27/17 05:49 Total Bilirubin 0.20 mg/dL (0.1-1.2) 03/24/17 18:59 AST 9 units/L (5-40) 03/24/17 18:59 ALT < 5 units/L (7-56) L 03/24/17 18:59 Alkaline Phosphatase 85 units/L (35-129) 03/24/17 18:59 Total Protein 8.8 g/dL (6.3-8.2) H 03/24/17 18:59 Albumin 3.8 g/dL (3.9-5) L 03/24/17 18:59 Albumin/Globulin Ratio 0.8 % 03/24/17 18:59 Lipase 10 units/L (13-60) L 03/24/17 18:59 Urine Color Yellow (Yellow) 03/24/17 21:07 Urine Turbidity Cloudy (Clear) 03/24/17 21:07 Urine pH 7.0 (5.0-7.0) 03/24/17 21:07 Ur Specific [place] 1.010 (1.003-1.030) 03/24/17 21:07 Urine Protein 30 mg/dl mg/dL (Negative) 03/24/17 21:07 Urine Glucose (UA) Neg mg/dL (Negative) 03/24/17 21:07 Urine Ketones Neg mg/dL (Negative) 03/24/17 21:07 Urine Blood Mod (Negative) 03/24/17 21:07 Urine Nitrite Neg (Negative) 03/24/17 21:07 Urine Bilirubin Neg (Negative) 03/24/17 21:07 Urine Urobilinogen < 2.0 mg/dL (<2.0) 03/24/17 21:07 Ur Leukocyte Esterase Lg (Negative) 03/24/17 21:07 Urine WBC (Auto) > 182.0 /HPF (0.0-6.0) H 03/24/17 21:07 Urine RBC (Auto) 19.0 /HPF (0.0-6.0) 03/24/17 21:07 U Epithel Cells (Auto) 1.0 /HPF (0-13.0) 03/24/17 21:07 Urine WBC Clumps 3+ /HPF 03/24/17 21:07 Urine Mucus Few /HPF 03/24/17 21:07 Blood Type O POSITIVE 03/24/17 19:00 Antibody Screen TNR 03/24/17 19:00 [place]ENIE Antibody Screen Negative 03/24/17 19:00
[2017-03-28] MEDS: DIFLUCAN 200 ML IV SCH (12:07)
--- NOTE | 2017-03-28 14:23 | Progress Note ---
Subjective Patient Reports: Positive: feels better, flatus, bowel movement Narrative: looks better to me C/o loose stool insisted on the Pt to have the RN to see the stool , for CT thursday on antibiotics , Objective Vital Signs - 12hr 03/28/17 03/28/17 08:00 09:59 Temperature 98.0 F Pulse Rate 64 Respiratory 20 Rate Blood Pressure 134/80 134/80 - Labs 03/27/17 05:49 03/28/17 10:43 Diabetes panel 03/28/17 Range/Units 10:43 Sodium 143 (137-145) mmol/L Potassium 3.3 L (3.6-5.0) mmol/L Chloride 105.4 (98-107) mmol/L Carbon Dioxide 22 (22-30) mmol/L BUN < 1 L (7-17) mg/dL Creatinine 0.6 L (0.7-1.2) mg/dL Glucose 115 H (65-100) mg/dL Calcium 8.9 (8.4-10.2) mg/dL Calcium panel 03/28/17 Range/Units 10:43 Calcium 8.9 (8.4-10.2) mg/dL Pituitary panel 03/28/17 Range/Units 10:43 Sodium 143 (137-145) mmol/L Potassium 3.3 L (3.6-5.0) mmol/L Chloride 105.4 (98-107) mmol/L Carbon Dioxide 22 (22-30) mmol/L BUN < 1 L (7-17) mg/dL Creatinine 0.6 L (0.7-1.2) mg/dL Glucose 115 H (65-100) mg/dL Calcium 8.9 (8.4-10.2) mg/dL Adrenal panel 03/28/17 Range/Units 10:43 Sodium 143 (137-145) mmol/L Potassium 3.3 L (3.6-5.0) mmol/L Chloride 105.4 (98-107) mmol/L Carbon Dioxide 22 (22-30) mmol/L BUN < 1 L (7-17) mg/dL Creatinine 0.6 L (0.7-1.2) mg/dL Glucose 115 H (65-100) mg/dL Calcium 8.9 (8.4-10.2) mg/dL
--- NOTE | 2017-03-28 17:46 | Progress Note ---
Assessment and Plan - Patient Problems (1) Intra-abdominal abscess Current Visit: Yes Status: Acute Plan to address problem: 1. Await findings of repeat CT abd/ pelv on 03/30/17. 2. Will change to oral empiric therapy until patient has new IV access. (2) Clostridium difficile diarrhea Current Visit: Yes Status: Acute Plan to address problem: Continuing for now with enteral Flagyl over Vancomycin given issues with IV access. Duration dependent upon duration of antibiotics needed for treatment of intra-abdominal abscess. Subjective Date of service: 03/28/17 Principal diagnosis: Intra-Abdominal Abscesses Interval history: IV infiltrated and patient is without reliable IV access. Remains stable, afebrile. Objective - Constitutional Vitals: Vital Signs Temp Pulse Resp BP Pulse Ox 99.2 F 62 20 165/86 98 03/28/17 15:10 03/28/17 15:10 03/28/17 15:10 03/28/17 15:10 03/28/17 15:10 Temperature -Last 24 Hours Temperature 99.2 F Temperature 98.0 F Temperature 97.9 F General appearance: Present: no acute distress, well-nourished - EENT Eyes: no scleral icterus - Respiratory Respiratory effort: normal Respiratory: bilateral: CTA - Cardiovascular Rhythm: regular Heart Sounds: Present: S1 & S2 Extremity abnormal: edema (mild edema of L > R hands) - Gastrointestinal General gastrointestinal: Present: soft, tender, distended (mildly), hypoactive bowel sounds, other (sutures remain in place) Localized gastrointestinal: tender: RLQ - Integumentary Integumentary: clear, no jaundice - Labs CBC & Chem 7: 03/27/17 05:49 03/28/17 10:43 Labs: Abnormal lab results 03/28/17 Range/Units 10:43 Potassium 3.3 L (3.6-5.0) mmol/L BUN < 1 L (7-17) mg/dL Creatinine 0.6 L (0.7-1.2) mg/dL Glucose 115 H (65-100) mg/dL Microbiology 03/25/17 01:16 Peripheral/Venous Blood Culture - Preliminary NO GROWTH AFTER 72 HOURS 03/25/17 01:16 Peripheral/Venous Blood Culture - Preliminary NO GROWTH AFTER 72 HOURS 03/25/17 Unknown Urine,Clean Catch Urine Culture - Final Escherichia Coli 08/10/17 20:39 Stool Stool Culture - Preliminary 03/26/17 20:39 Stool Stool for WBCs - Final 03/26/17 20:39 Stool C. difficile DNA Amplification - Final
[2017-03-28] MEDS: ZYVOX PO SCH (22:28)
[2017-03-28] MEDS: LEVAQUIN PO SCH (22:29)
[2017-03-28] MEDS: FLAGYL PO SCH (22:29)
[2017-03-29] MEDS: FLAGYL PO SCH ×3 (05:35→22:06)
[2017-03-29 07:23] LABS: Basophils % (Auto) 0.6 % (0.0-1.8); Eosinophils % (Auto) 2.9 % (0.0-4.3); Hematocrit 33.7 % (30.3-42.9); Hemoglobin 9.8 gm/dl (10.1-14.3); Mean Corpuscular HGB Conc 29 % (30-34); Mean Corpuscular Volume 83 fl (79-97); Platelet Count 415 K/mm3 (140-440); Red Blood Count 4.05 M/mm3 (3.65-5.03); White Blood Count 8.4 K/mm3 (4.5-11.0)
[2017-03-29 07:24] LABS: Mean Corpuscular Hemoglobin 24 pg (28-32)
[2017-03-29 07:50] LABS: Anion Gap 21 mmol/L; Calcium 8.8 mg/dL (8.4-10.2); Carbon Dioxide 19 mmol/L (22-30); Chloride 102.9 mmol/L (98-107); Glucose 88 mg/dL (65-100); Potassium 3.4 mmol/L (3.6-5.0); Sodium 139 mmol/L (137-145)
[2017-03-29 07:56] LABS: BUN/Creatinine Ratio 1.66; Blood Urea Nitrogen < 1 mg/dL (7-17)
[2017-03-29] MEDS ORDERED: K-DUR PO ONE (08:06)
[2017-03-29] MEDS ORDERED: MAGNESIUM SULFATE 2GM/50ML 2 GM/50 ML BAG IV ONE (08:06)
[2017-03-29] MEDS: K-DUR PO SCH (11:31)
[2017-03-29] MEDS: DIFLUCAN PO SCH (11:31)
[2017-03-29] MEDS: LOPRESSOR PO SCH ×2 (11:31→22:06)
[2017-03-29] MEDS: MAG-OX PO SCH ×2 (11:32→22:06)
[2017-03-29] MEDS: ZYVOX PO SCH ×2 (11:43→22:05)
--- NOTE | 2017-03-29 16:16 | Progress Note ---
Subjective Patient Reports: Positive: feels better, still having pain, pain is less, bowel movement Narrative: feels better pain is less less BMs . will check with CT Objective Vital Signs - 12hr 03/29/17 08:00 Temperature 98.9 F Pulse Rate 61 Respiratory 18 Rate Blood Pressure 139/80 O2 Sat by Pulse 99 Oximetry - Labs 03/29/17 06:42 03/29/17 06:42 Diabetes panel 03/29/17 Range/Units 06:42 Sodium 139 (137-145) mmol/L Potassium 3.4 L (3.6-5.0) mmol/L Chloride 102.9 (98-107) mmol/L Carbon Dioxide 19 L (22-30) mmol/L BUN < 1 L (7-17) mg/dL Creatinine 0.6 L (0.7-1.2) mg/dL Glucose 88 (65-100) mg/dL Calcium 8.8 (8.4-10.2) mg/dL Calcium panel 03/29/17 Range/Units 06:42 Calcium 8.8 (8.4-10.2) mg/dL Phosphorus 3.20 (2.5-4.5) mg/dL Pituitary panel 03/29/17 Range/Units 06:42 Sodium 139 (137-145) mmol/L Potassium 3.4 L (3.6-5.0) mmol/L Chloride 102.9 (98-107) mmol/L Carbon Dioxide 19 L (22-30) mmol/L BUN < 1 L (7-17) mg/dL Creatinine 0.6 L (0.7-1.2) mg/dL Glucose 88 (65-100) mg/dL Calcium 8.8 (8.4-10.2) mg/dL Adrenal panel 03/29/17 Range/Units 06:42 Sodium 139 (137-145) mmol/L Potassium 3.4 L (3.6-5.0) mmol/L Chloride 102.9 (98-107) mmol/L Carbon Dioxide 19 L (22-30) mmol/L BUN < 1 L (7-17) mg/dL Creatinine 0.6 L (0.7-1.2) mg/dL Glucose 88 (65-100) mg/dL Calcium 8.8 (8.4-10.2) mg/dL
--- NOTE | 2017-03-29 18:54 | Progress Note ---
Assessment and Plan Assessment and plan: --Hypokalemia; replenish per protocol and monitor levels --Hypomagnesemia; replenished per protocol and monitor levels --Intra-abdominal abscesses; symptoms slightly improved on clear liquids Surgery ID following --C. 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 Secondary to Escherichia coli , continue antibiotics per sensitivities --Hypertension; well controlled --DVT prophylaxis with SCDs pharmacologic anticoagulation in view of pending surgical procedure --Full CODE STATUS Advance diet as tolerated Physical therapy occupational therapy Out of bed to chair if tolerated Consults and recommendations noted and appreciated History Interval history: Patient seen and evaluated medical records reviewed Feels slightly better the area is less Alert awake oriented 3 not in acute distress Vital signs reviewed, on contact isolation Hospitalist Physical - Constitutional Vitals: Temp Pulse Resp BP Pulse Ox 99.4 F 62 20 137/84 100 03/29/17 16:00 03/29/17 16:00 03/29/17 16:00 03/29/17 16:00 03/29/17 16:00 General appearance: Present: no acute distress, well-nourished - EENT Eyes: Present: PERRL, EOM intact - Neck Neck: Present: supple, normal ROM - Respiratory Respiratory effort: normal Respiratory: bilateral: diminished, negative: rales, rhonchi, wheezing - Cardiovascular Rhythm: regular Heart Sounds: Present: S1 & S2 - Extremities Extremities: no ischemia, No edema - Abdominal General gastrointestinal: soft, non-tender, non-distended, normal bowel sounds - Integumentary Integumentary: Present: clear, warm - Psychiatric Psychiatric: appropriate mood/affect, cooperative - Neurologic Neurologic: CNII-XII intact, moves all extremities Results - Labs CBC & Chem 7: 03/29/17 06:42 03/29/17 06:42 Labs: Laboratory Last Values WBC 8.4 K/mm3 (4.5-11.0) 03/29/17 06:42 RBC 4.05 M/mm3 (3.65-5.03) 03/29/17 06:42 Hgb 9.8 gm/dl (10.1-14.3) L 03/29/17 06:42 Hct 33.7 % (30.3-42.9) 03/29/17 06:42 MCV 83 fl (79-97) 03/29/17 06:42 MCH 24 pg (28-32) L 03/29/17 06:42 MCHC 29 % (30-34) L 03/29/17 06:42 RDW 16.0 % (13.2-15.2) H 03/29/17 06:42 Plt Count 415 K/mm3 (140-440) 03/29/17 06:42 Lymph % (Auto) 19.9 % (13.4-35.0) 03/29/17 06:42 [place] % (Auto) 9.4 % (0.0-7.3) H 03/29/17 06:42 Eos % (Auto) 2.9 % (0.0-4.3) 03/29/17 06:42 Baso % (Auto) 0.6 % (0.0-1.8) 03/29/17 06:42 Lymph # 1.7 K/mm3 (1.2-5.4) 03/29/17 06:42 [place] # 0.8 K/mm3 (0.0-0.8) 03/29/17 06:42 Eos # 0.2 K/mm3 (0.0-0.4) 03/29/17 06:42 Baso # 0.0 K/mm3 (0.0-0.1) 03/29/17 06:42 Add Manual Diff Complete 03/26/17 04:27 Seg Neutrophils % 67.2 % (40.0-70.0) 03/29/17 06:42 Seg Neutrophils # 5.7 K/mm3 (1.8-7.7) 03/29/17 06:42 PT 14.5 Sec. (12.2-14.9) 03/24/17 18:59 INR 1.07 (0.87-1.13) 03/24/17 18:59 APTT 41.7 Sec. (24.2-36.6) H 03/24/17 18:59 Sodium 139 mmol/L (137-145) 03/29/17 06:42 Potassium 3.4 mmol/L (3.6-5.0) L 03/29/17 06:42 Chloride 102.9 mmol/L (98-107) 03/29/17 06:42 Carbon Dioxide 19 mmol/L (22-30) L 03/29/17 06:42 Anion Gap 21 mmol/L 03/29/17 06:42 BUN < 1 mg/dL (7-17) L 03/29/17 06:42 Creatinine 0.6 mg/dL (0.7-1.2) L 03/29/17 06:42 Estimated GFR > 60 ml/min 03/29/17 06:42 BUN/Creatinine Ratio 1.66 % 03/29/17 06:42 Glucose 88 mg/dL (65-100) 03/29/17 06:42 Calcium 8.8 mg/dL (8.4-10.2) 03/29/17 06:42 Phosphorus 3.20 mg/dL (2.5-4.5) 03/29/17 06:42 Magnesium 1.60 mg/dL (1.7-2.3) L 03/29/17 06:42 Total Bilirubin 0.20 mg/dL (0.1-1.2) 03/24/17 18:59 AST 9 units/L (5-40) 03/24/17 18:59 ALT < 5 units/L (7-56) L 03/24/17 18:59 Alkaline Phosphatase 85 units/L (35-129) 03/24/17 18:59 Total Protein 8.8 g/dL (6.3-8.2) H 03/24/17 18:59 Albumin 3.8 g/dL (3.9-5) L 03/24/17 18:59 Albumin/Globulin Ratio 0.8 % 03/24/17 18:59 Lipase 10 units/L (13-60) L 03/24/17 18:59 Urine Color Yellow (Yellow) 03/24/17 21:07 Urine Turbidity Cloudy (Clear) 03/24/17 21:07 Urine pH 7.0 (5.0-7.0) 03/24/17 21:07 Ur Specific [place] 1.010 (1.003-1.030) 03/24/17 21:07 Urine Protein 30 mg/dl mg/dL (Negative) 03/24/17 21:07 Urine Glucose (UA) Neg mg/dL (Negative) 03/24/17 21:07 Urine Ketones Neg mg/dL (Negative) 03/24/17 21:07 Urine Blood Mod (Negative) 03/24/17 21:07 Urine Nitrite Neg (Negative) 03/24/17 21:07 Urine Bilirubin Neg (Negative) 03/24/17 21:07 Urine Urobilinogen < 2.0 mg/dL (<2.0) 03/24/17 21:07 Ur Leukocyte Esterase Lg (Negative) 03/24/17 21:07 Urine WBC (Auto) > 182.0 /HPF (0.0-6.0) H 03/24/17 21:07 Urine RBC (Auto) 19.0 /HPF (0.0-6.0) 03/24/17 21:07 U Epithel Cells (Auto) 1.0 /HPF (0-13.0) 03/24/17 21:07 Urine WBC Clumps 3+ /HPF 03/24/17 21:07 Urine Mucus Few /HPF 03/24/17 21:07 Blood Type O POSITIVE 03/24/17 19:00 Antibody Screen TNR 03/24/17 19:00 QUEENIE Antibody Screen Negative 03/24/17 19:00
[2017-03-29] MEDS: LEVAQUIN PO SCH (21:12)
[2017-03-30] MEDS: FLAGYL PO SCH ×3 (06:30→21:07)
[2017-03-30 08:27] LABS: Anion Gap 19 mmol/L; BUN/Creatinine Ratio 4.28; Blood Urea Nitrogen 3 mg/dL (7-17); Calcium 8.9 mg/dL (8.4-10.2); Carbon Dioxide 23 mmol/L (22-30); Chloride 102.9 mmol/L (98-107); Glucose 101 mg/dL (65-100); Potassium 3.6 mmol/L (3.6-5.0); Sodium 141 mmol/L (137-145)
--- NOTE | 2017-03-30 11:13 | Progress Note ---
Assessment and Plan - Patient Problems (1) Intra-abdominal abscess Current Visit: Yes Status: Acute Plan to address problem: 1. Findings of repeat CT imaging show resolution of one abscess and 50% reduction in size of second one. 2. Recommend continuing oral, empiric regimen that patient is presently prescribed, including Linezolid 600mg PO q12h, Levaquin 750mg PO daily, Fluconazole 200mg PO daily and Flagyl 500mg PO tid until April 08, 2017 (at minimum). 3. PICC line placement is NOT needed. 4. Consider repeat CT abdomen/ pelvis next week prior to stopping antibiotics. 5. Case management assistance is requested in securing any PA requirement for Linezolid. 6. I will sign off. Please call again if there are additional questions or concerns. (2) Clostridium difficile diarrhea Current Visit: Yes Status: Acute Plan to address problem: 1. Continue Flagyl for dual abscess and Cdiff management. 2. Once Linezolid, Levaquin and Fluconzole course is complete, continue Flagyl for an additional 3-5 days (stop date ~ April 13, 2017). Subjective Date of service: 03/30/17 Principal diagnosis: Intra-Abdominal Abscesses Interval history: Patient completed repeat CT abdominal imaging today. Remains afebrile. Objective - Constitutional Vitals: Vital Signs Temp Pulse Resp BP Pulse Ox 98.4 F 78 20 140/82 97 03/30/17 08:00 03/30/17 08:00 03/30/17 08:00 03/30/17 08:00 03/30/17 08:00 Temperature -Last 24 Hours Temperature 98.4 F Temperature 98.8 F Temperature 99.4 F General appearance: Present: no acute distress - EENT Eyes: no scleral icterus - Neck Neck: supple - Respiratory Respiratory effort: normal Respiratory: bilateral: CTA - Cardiovascular Rhythm: regular Heart Sounds: Present: S1 & S2 Extremities: No edema - Gastrointestinal General gastrointestinal: Present: soft, tender, distended (mildly), other ( large horizontal sutures remain intact) Localized gastrointestinal: tender: LLQ, suprapubic - Integumentary Integumentary: no jaundice, no rash - Neurologic Neurologic: moves all extremities - Psychiatric Psychiatric: appropriate mood/affect - Labs CBC & Chem 7: 03/29/17 06:42 03/30/17 07:38 Labs: Abnormal lab results 03/30/17 Range/Units 07:38 BUN 3 L (7-17) mg/dL Glucose 101 H (65-100) mg/dL Microbiology 03/25/17 01:16 Peripheral/Venous Blood Culture - Final NO GROWTH AFTER 5 DAYS 03/25/17 01:16 Peripheral/Venous Blood Culture - Final NO GROWTH AFTER 5 DAYS 03/26/17 20:39 Stool Stool Culture - Final 03/26/17 20:39 Stool Stool for WBCs - Final 03/25/17 Unknown Urine,Clean Catch Urine Culture - Final Escherichia Coli 03/26/17 20:39 Stool C. difficile DNA Amplification - Final - Imaging and cardiology CT scan - abdomen: report reviewed (collection previously seen anterior/ superior to urinary bladder is resolved; second collection near sigmoid colon now measures 1.5 cm in largest diameter)
[2017-03-30] MEDS ORDERED: NACL ONE (11:55)
[2017-03-30] MEDS: MORPHINE IV PRN ×2 (13:19→20:11)
[2017-03-30] MEDS: ZOFRAN IV PRN ×2 (13:19→20:10)
[2017-03-30] MEDS: DIFLUCAN PO SCH (13:20)
[2017-03-30] MEDS: ZYVOX PO SCH ×2 (13:20→21:06)
[2017-03-30] MEDS: MAG-OX PO SCH ×2 (13:21→22:09)
[2017-03-30] MEDS: K-DUR PO SCH (13:21)
[2017-03-30] MEDS: LOPRESSOR PO SCH ×2 (13:21→21:07)
--- NOTE | 2017-03-30 13:55 | Cat Scan Report ---
CT ABDOMEN PELVIS WITH AND WITHOUT CONTRAST History: Abdominal pain, postoperative evaluation. Technique: Helical CT before and after IV contrast and with oral contrast. Sagittal and coronal reformatted images. Findings: Compared to 03/24/17. 2 small collections concerning for abscess were identified in the pelvis on the previous examination. An approximate 2.5 cm collection containing gas and small fluid just anterior and superior to the bladder has resolved since the previous exam. A second small collection adjacent to the sigmoid colon has decreased by 50% and now measures approximately 1.5 cm. There is no evidence for bowel obstruction or new areas of inflammation. There is evidence for oral contrast entering the vaginal canal which is concerning for a nonvisualized enterovaginal fistula. The fistula is not clearly demonstrated on CT. It may be arising from the sigmoid colon or matted small bowel loops in the vicinity. Please correlate with the patient and consider a followup small bowel series or barium enema. The liver, biliary system, pancreas, spleen, kidneys and adrenal glands are unremarkable. The bladder is decompressed and poorly evaluated. The aorta is normal caliber. Hysterectomy changes are again noted. Impression: Improvement in the 2 small pelvic abscesses since 03/24/17 as outlined above. Possible enterovaginal fistula. Please see above. These findings were discussed with Dr. Rosas at 1345 hrs.
--- NOTE | 2017-03-30 16:17 | Progress Note ---
Subjective Patient Reports: Positive: feels better, pain is less, flatus Narrative: feels better , still minimal abd pain CT as per Dr Copeland , will observe , Pt on full liquid , Objective Vital Signs - 12hr 03/30/17 03/30/17 08:00 15:47 Temperature 98.4 F 98 F Pulse Rate 78 82 Respiratory 20 20 Rate Blood Pressure 140/82 138/80 O2 Sat by Pulse 97 Oximetry - Labs 03/29/17 06:42 03/30/17 07:38 Diabetes panel 03/30/17 Range/Units 07:38 Sodium 141 (137-145) mmol/L Potassium 3.6 (3.6-5.0) mmol/L Chloride 102.9 (98-107) mmol/L Carbon Dioxide 23 (22-30) mmol/L BUN 3 L (7-17) mg/dL Creatinine 0.7 (0.7-1.2) mg/dL Glucose 101 H (65-100) mg/dL Calcium 8.9 (8.4-10.2) mg/dL Calcium panel 03/30/17 Range/Units 07:38 Calcium 8.9 (8.4-10.2) mg/dL Phosphorus 3.00 (2.5-4.5) mg/dL Pituitary panel 03/30/17 Range/Units 07:38 Sodium 141 (137-145) mmol/L Potassium 3.6 (3.6-5.0) mmol/L Chloride 102.9 (98-107) mmol/L Carbon Dioxide 23 (22-30) mmol/L BUN 3 L (7-17) mg/dL Creatinine 0.7 (0.7-1.2) mg/dL Glucose 101 H (65-100) mg/dL Calcium 8.9 (8.4-10.2) mg/dL Adrenal panel 03/30/17 Range/Units 07:38 Sodium 141 (137-145) mmol/L Potassium 3.6 (3.6-5.0) mmol/L Chloride 102.9 (98-107) mmol/L Carbon Dioxide 23 (22-30) mmol/L BUN 3 L (7-17) mg/dL Creatinine 0.7 (0.7-1.2) mg/dL Glucose 101 H (65-100) mg/dL Calcium 8.9 (8.4-10.2) mg/dL
--- NOTE | 2017-03-30 19:33 | Progress Note ---
Assessment and Plan Assessment and plan: --Hypokalemia; resolved --Hypomagnesemia; corrected --Intra-abdominal abscesses; symptoms slightly improved on clear liquids Surgery ID following, on multiple antibiotic. --C. 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 Secondary to Escherichia coli , continue antibiotics per sensitivities --Hypertension; well controlled --DVT prophylaxis with SCDs pharmacologic anticoagulation in view of pending surgical procedure --Full CODE STATUS, Out of bed to chair, physical therapy evaluation and treatment Closely monitor the patient and adjust management as needed Consults and recommendations noted and appreciated Disposition; follow surgery and ID recommendations Possible discharge in one to 2 days if stable History Interval history: Patient feels slightly better Tolerating full liquid diet No new complaints Hospitalist Physical - Constitutional Vitals: Temp Pulse Resp BP Pulse Ox 98 F 82 20 138/80 97 03/30/17 15:47 03/30/17 15:47 03/30/17 15:47 03/30/17 15:47 03/30/17 08:00 General appearance: Present: no acute distress, well-nourished - EENT Eyes: Present: PERRL, EOM intact - Neck Neck: Present: supple, normal ROM - Respiratory Respiratory effort: normal Respiratory: bilateral: diminished, negative: rales, rhonchi, wheezing - Cardiovascular Rhythm: regular Heart Sounds: Present: S1 & S2 - Extremities Extremities: no ischemia, No edema - Abdominal General gastrointestinal: soft, non-tender, non-distended, normal bowel sounds, other (surgical dressing in place) - Integumentary Integumentary: Present: clear, warm - Psychiatric Psychiatric: appropriate mood/affect, cooperative - Neurologic Neurologic: CNII-XII intact, moves all extremities Results - Labs CBC & Chem 7: 03/29/17 06:42 03/30/17 07:38 Labs: Laboratory Last Values WBC 8.4 K/mm3 (4.5-11.0) 03/29/17 06:42 RBC 4.05 M/mm3 (3.65-5.03) 03/29/17 06:42 Hgb 9.8 gm/dl (10.1-14.3) L 03/29/17 06:42 Hct 33.7 % (30.3-42.9) 03/29/17 06:42 MCV 83 fl (79-97) 03/29/17 06:42 MCH 24 pg (28-32) L 03/29/17 06:42 MCHC 29 % (30-34) L 03/29/17 06:42 RDW 16.0 % (13.2-15.2) H 03/29/17 06:42 Plt Count 415 K/mm3 (140-440) 03/29/17 06:42 Lymph % (Auto) 19.9 % (13.4-35.0) 03/29/17 06:42 [place] % (Auto) 9.4 % (0.0-7.3) H 03/29/17 06:42 Eos % (Auto) 2.9 % (0.0-4.3) 03/29/17 06:42 Baso % (Auto) 0.6 % (0.0-1.8) 03/29/17 06:42 Lymph # 1.7 K/mm3 (1.2-5.4) 03/29/17 06:42 [place] # 0.8 K/mm3 (0.0-0.8) 03/29/17 06:42 Eos # 0.2 K/mm3 (0.0-0.4) 03/29/17 06:42 Baso # 0.0 K/mm3 (0.0-0.1) 03/29/17 06:42 Add Manual Diff Complete 03/26/17 04:27 Seg Neutrophils % 67.2 % (40.0-70.0) 03/29/17 06:42 Seg Neutrophils # 5.7 K/mm3 (1.8-7.7) 03/29/17 06:42 PT 14.5 Sec. (12.2-14.9) 03/24/17 18:59 INR 1.07 (0.87-1.13) 03/24/17 18:59 APTT 41.7 Sec. (24.2-36.6) H 03/24/17 18:59 Sodium 141 mmol/L (137-145) 03/30/17 07:38 Potassium 3.6 mmol/L (3.6-5.0) 03/30/17 07:38 Chloride 102.9 mmol/L (98-107) 03/30/17 07:38 Carbon Dioxide 23 mmol/L (22-30) 03/30/17 07:38 Anion Gap 19 mmol/L 03/30/17 07:38 BUN 3 mg/dL (7-17) L 03/30/17 07:38 Creatinine 0.7 mg/dL (0.7-1.2) 03/30/17 07:38 Estimated GFR > 60 ml/min 03/30/17 07:38 BUN/Creatinine Ratio 4.28 % 03/30/17 07:38 Glucose 101 mg/dL (65-100) H 03/30/17 07:38 Calcium 8.9 mg/dL (8.4-10.2) 03/30/17 07:38 Phosphorus 3.00 mg/dL (2.5-4.5) 03/30/17 07:38 Magnesium 1.70 mg/dL (1.7-2.3) 03/30/17 07:38 Total Bilirubin 0.20 mg/dL (0.1-1.2) 03/24/17 18:59 AST 9 units/L (5-40) 03/24/17 18:59 ALT < 5 units/L (7-56) L 03/24/17 18:59 Alkaline Phosphatase 85 units/L (35-129) 03/24/17 18:59 Total Protein 8.8 g/dL (6.3-8.2) H 03/24/17 18:59 Albumin 3.8 g/dL (3.9-5) L 03/24/17 18:59 Albumin/Globulin Ratio 0.8 % 03/24/17 18:59 Lipase 10 units/L (13-60) L 03/24/17 18:59 Urine Color Yellow (Yellow) 03/24/17 21:07 Urine Turbidity Cloudy (Clear) 03/24/17 21:07 Urine pH 7.0 (5.0-7.0) 03/24/17 21:07 Ur Specific [place] 1.010 (1.003-1.030) 03/24/17 21:07 Urine Protein 30 mg/dl mg/dL (Negative) 03/24/17 21:07 Urine Glucose (UA) Neg mg/dL (Negative) 03/24/17 21:07 Urine Ketones Neg mg/dL (Negative) 03/24/17 21:07 Urine Blood Mod (Negative) 03/24/17 21:07 Urine Nitrite Neg (Negative) 03/24/17 21:07 Urine Bilirubin Neg (Negative) 03/24/17 21:07 Urine Urobilinogen < 2.0 mg/dL (<2.0) 03/24/17 21:07 Ur Leukocyte Esterase Lg (Negative) 03/24/17 21:07 Urine WBC (Auto) > 182.0 /HPF (0.0-6.0) H 03/24/17 21:07 Urine RBC (Auto) 19.0 /HPF (0.0-6.0) 03/24/17 21:07 U Epithel Cells (Auto) 1.0 /HPF (0-13.0) 03/24/17 21:07 Urine WBC Clumps 3+ /HPF 03/24/17 21:07 Urine Mucus Few /HPF 03/24/17 21:07 Blood Type O POSITIVE 03/24/17 19:00 Antibody Screen TNR 03/24/17 19:00 QUEENIE Antibody Screen Negative 03/24/17 19:00
[2017-03-30] MEDS: VANCOMYCIN PO PO SCH (20:05)
[2017-03-30] MEDS: ZOSYN/NS 4.5GM/100ML 4.5 GM/100 ML VIAL IV SCH (20:06)
[2017-03-30] MEDS: LEVAQUIN PO SCH (20:09)
[2017-03-31] MEDS: FLAGYL PO SCH ×2 (05:51→13:16)
[2017-03-31] MEDS: LOPRESSOR PO SCH (09:34)
[2017-03-31] MEDS: DIFLUCAN PO SCH (09:34)
[2017-03-31] MEDS: K-DUR PO SCH (09:34)
[2017-03-31] MEDS: ZYVOX PO SCH (09:34)
[2017-03-31] MEDS: MORPHINE IV PRN (11:21)
[2017-03-31] MEDS: ZOFRAN IV PRN (11:22)
--- NOTE | 2017-03-31 14:58 | Discharge Summary ---
Providers - Providers Date of Admission: 03/25/17 01:05 Date of discharge: 03/31/17 Attending physician: JORDYN COLORADO 03/25/17 09:54 Consult to Wound/ET Nurse [CONS] Routine Reason For Exam: wound eval 03/25/17 13:36 Consult to Physician [CONS] Routine Consulting Provider: RACHNA MOY Reason For Exam: sepsis/intra abdominal abscess Place consult to:: [place] Notified:: yes Phone number called:: [phone] Time called:: 14:50 Comment:: left mess on voicemail 03/30/17 10:25 PICC Line Insertion [Consult to PICC Line RN] [CONS] Routine Reason For Exam: No IV acess Patient on Antibiotic Type Line:: PICC 03/30/17 14:13 Consult to Case Management [CONS] Routine Services Needed at Discharge: Other Notified:: COPY GIVEN TO CM Comment:: Assistance with Linezolid prescription/ PA 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 She had had sigmoid colon resection in 2016 with colostomy. On 02/19/17, she had closure of colostomy by Dr. Springer. She presents with abdominal pain, CT imaging of the abdomen revealed two discrete collections measuring 2.6 X 2.7 cm and 2.2 X 3.7 cm. She is started on empiric Zosyn pending further surgical intervention. She also complains of diarrhea since the colostomy take-down. ID consultation is requested for further treatment recommendations. per ID physician, Dr. Moy: "(1) Intra-abdominal abscess Current Visit: Yes Status: Acute Plan to address problem: 1. Findings of repeat CT imaging show resolution of one abscess and 50% reduction in size of second one. 2. Recommend continuing oral, empiric regimen that patient is presently prescribed, including Linezolid 600mg PO q12h, Levaquin 750mg PO daily, Fluconazole 200mg PO daily and Flagyl 500mg PO tid until April 08, 2017 (at minimum). 3. PICC line placement is NOT needed. 4. Consider repeat CT abdomen/ pelvis next week prior to stopping antibiotics. 5. Case management assistance is requested in securing any PA requirement for Linezolid. 6. I will sign off. Please call again if there are additional questions or concerns. (2) Clostridium difficile diarrhea Current Visit: Yes Status: Acute Plan to address problem: 1. Continue Flagyl for dual abscess and Cdiff management. 2. Once Linezolid, Levaquin and Fluconzole course is complete, continue Flagyl for an additional 3-5 days (stop date ~ April 13, 2017)." 3) HTN 4) E. coli UTI Disposition: DC-30 STILL A PATIENT Time spent for discharge: 32 minutes Core Measure Documentation - Palliative Care Palliative Care/ Comfort Measures: Not Applicable - Core Measures Any of the following diagnoses?: none - VTE Discharge Requirements Deep Vein Thrombosis/Pulmonary Embolism Present on Admission: No Has pt received <5 days of overlap therapy or INR<2.0: No Anticoagulant overlap therapy prescribed at discharge: No Contraindication No Overlap Therapy order at DC: Not Indicated Exam - Physical Exam Narrative exam: GEN: WDWN, NAD, AWAKE, ALERT, ORIENTATED x 3 HEENT: NCAT, PERRL, EOMI, OP CLEAR NECK: SUPPLE, NO THYROMEGALY, NO JVD, NO LAD CVS: RRR, NORMAL S1S2 LUNGS/CHEST: CTA B, NORMAL CHEST EXPANSION B, GOOD AIR ENTRY B ABD: SOFT, surgical wound with dressing intact, GBS, NO REBOUND OR GUARDING EXT/SKIN: NO SIGNIFICANT EDEMA OR RASH MSK: FROM X 4 EXTREMITIES NEURO: CN 2-12 GROSSLY INTACT, NO FOCAL DEFICITS PSY: CALM - Constitutional Vitals: Temp Pulse Resp BP Pulse Ox 97.9 F 80 18 140/78 98 03/31/17 08:06 03/31/17 08:06 03/31/17 08:06 03/31/17 08:06 03/31/17 08:06 Plan Activity: other (no strenous activites until cleared by general surgery) Diet: advance as tolerated Wound: per your surgeon's advice Follow up with: SHERICE MARLEY MD [Primary Care Provider] - 3-5 Days HELDER SPRINGER MD [Staff Physician] - 7 Days RACHNA MOY MD [Staff Physician] - 7 Days Prescriptions: Fluconazole [Diflucan TAB] 200 mg PO QDAY #10 tablet Levofloxacin [Levaquin TAB] 750 mg PO Q24H #10 tablet Linezolid [Zyvox] 600 mg PO Q12HR #20 tablet metroNIDAZOLE [Flagyl TAB] 500 mg PO Q8HR #30 tablet Potassium Chloride [K-Dur] 10 meq PO QDAY #30 tablet
--- NOTE | 2017-03-31 15:39 | Progress Note ---
Subjective Patient Reports: Positive: no new complaints, feels better, flatus, bowel movement Narrative: feels and looks much better , abd soft seen by ID to be D/S today ,on flagyl , levaquin , xyvox,and Diflucan .BTO tn [address] Db Barba as well , Objective Vital Signs - 12hr 03/31/17 08:06 Temperature 97.9 F Pulse Rate 80 Respiratory 18 Rate Blood Pressure 140/78 O2 Sat by Pulse 98 Oximetry - Labs 03/29/17 06:42 03/30/17 07:38
[2017-03-31 16:37] VITALS: BP 130/76
--- NOTE | 2017-04-01 16:32 | Event Note ---
Date: 03/31/17 I spoke to the pharmacist with the patient's insurance at 7:51 p.m. on 03/31/17 and explained that patient's clinical situation. She has no cultures from the abscess and is being treated empirically. Linezolid is approved for a 14-day supply.
--- NOTE | 2017-04-02 12:35 | Event Note ---
Date: 04/02/17 I received a request from Dr. Herbert to follow-up with [facility] ) regarding the prior authorization for Linezolid. The medication had been approved by the insurance carrier's pharmacist on 03/31/17 and he advised that he would send confirmation of the approval to the outpatient pharmacy. I spoke to "Michael" at [facility] who re-submitted the prescription and said "it went through this time". Michael said they would contact the patient to supervisor opening and picking the prescription. I have informed Dr. Herbert of this.
== END 2017-03-31 18:37 | disposition home or self-care (01) | DRG 371 ==
LOC: ED 18:24 → 3A 03-25 01:05
PROVIDERS: ADMIT Internal Medicine; ATTEND Internal Medicine
DX: A04.7 Enterocolitis due to Clostridium difficile (principal); K65.1 Peritoneal abscess; N39.0 Urinary tract infection, site not specified; I10 Essential (primary) hypertension; E87.6 Hypokalemia; E78.5 Hyperlipidemia, unspecified; R19.7 Diarrhea, unspecified; E83.42 Hypomagnesemia; B96.20 Unspecified Escherichia coli [E. coli] as the cause of diseases classified elsewhere; K21.9 Gastro-esophageal reflux disease without esophagitis; M19.90 Unspecified osteoarthritis, unspecified site; Z82.49 Family history of ischemic heart disease and other diseases of the circulatory system
CPT/HCPCS: 36415; 74000; 74177; 74178; 80048; 80053; 81001; 83690; 83735; 84100; 85007; 85025; 85027; 85610; 85730; 86850; 86900; 86901; 87040; 87045; 87076; 87086; 87186; 87493; 96361; 96374; 96375; 96376; J1170; J1450; J2270; J2405; J2543; J3370; J3475; J3480; J7030; Q9967